=== PATIENT | female | born 1990 | race Caucasian/White ===

== ENCOUNTER 2020-11-26 13:01 | Emergency (ER) | payer SELFPAY ==
[2020-11-26] MEDS ORDERED: ACETAMINOPHEN 325 MG TABLET PO ONE (14:44)
[2020-11-26] MEDS ORDERED: ONDANSETRON 4 MG TAB.RAPDIS PO ONE (14:45)
--- NOTE | 2020-11-26 14:48 | ER Document Report ---
ED Medical Screen (RME) - General Chief Complaint: Abdominal Pain Stated Complaint: ABDOMINAL PAIN Time Seen by Provider: 11/26/20 14:41 Primary Care Provider: RA SANCHEZ MD [Primary Care Provider] - Follow up as needed Mode of Arrival: Ambulatory Information source: Patient Notes: HPI; 30-year-old female presents to the emergency room complaining of sharp right-sided abdominal pain for the past 4 days. Complains of nausea but no vomiting. Has not taken any medications for her symptoms. Denies any COVID-19 exposure. Concern for . PE: Alert and oriented x3. Lungs: Clear to auscultation without rales, rhonchi, wheezes. Heart: Regular rate rhythm without murmurs, rubs, gallops. I have greeted and performed a rapid initial assessment of this patient. A comprehensive ED assessment and evaluation of the patient, analysis of test results and completion of the medical decision making process will be conducted by additional ED providers. I have specifically instructed the patient or family members with the patient to immediately return to any nursing staff should anything change in the patient's condition or with their chief complaint. TRAVEL OUTSIDE OF THE [place] IN LAST 30 DAYS: No - Related Data Allergies/Adverse Reactions: No Known Allergies Allergy (Verified 11/26/20 14:39) Physical Exam - Vital signs Vitals: Temp Pulse Resp BP Pulse Ox 98.7 F 91 16 107/64 100 11/26/20 13:16 11/26/20 13:16 11/26/20 13:16 11/26/20 13:16 11/26/20 13:16 Course - Vital Signs Vital signs: Temp Pulse Resp BP Pulse Ox 98.7 F 91 16 107/64 100 11/26/20 13:16 11/26/20 13:16 11/26/20 13:16 11/26/20 13:16 11/26/20 13:16 Doctor's Discharge - Discharge Referrals: RA SANCHEZ MD [Primary Care Provider] - Follow up as needed
[2020-11-26 15:23] LABS: APPEARANCE,URINE CLOUDY; BILIRUBIN,URINE NEGATIVE (NEGATIVE); COLOR,URINE DARK YELLOW; GLUCOSE, URINE NEGATIVE (NEGATIVE); KETONES,URINE NEGATIVE (NEGATIVE); LEUKOCYTE ESTERASE,URINE LARGE (NEGATIVE); NITRITE,URINE NEGATIVE (NEGATIVE); PROTEIN,URINE 100 mg/dL (NEGATIVE); URINE SPECIFIC GRAVITY 1.029
[2020-11-26 16:39] LABS: ABSOLUTE BASOPHILS # (AUTO) 0.1 10^3/uL (0.0-0.2); ABSOLUTE LYMPHOCYTES (AUTO) 1.4 10^3/uL (0.5-4.7); ABSOLUTE MONOCYTES (AUTO) 0.5 10^3/uL (0.1-1.4); ABSOLUTE NEUT (AUTO) 5.5 10^3/uL (1.7-8.2); BASOPHILS % (AUTO) 0.7 % (0-2); EOSINOPHILS % (AUTO) 0.5 % (0-6); HEMATOCRIT 30.2 % (36.0-47.0); HEMOGLOBIN 10.3 g/dL (12.0-15.5); LYMPHOCYTES % (AUTO) 18.3 % (13-45); MEAN CORPUSCULAR HGB CONC 34.2 g/dL (32.0-36.0); MEAN CORPUSCULAR VOLUME 82 fl (80-97); MONOCYTES % (AUTO) 6.5 % (3-13); PLATELET COUNT 462 10^3/uL (150-450); RED BLOOD COUNT 3.69 10^6/uL (3.72-5.28); TOTAL CELLS COUNTED % (AUTO) 100 %; WHITE BLOOD COUNT 7.4 10^3/uL (4.0-10.5)
[2020-11-26 16:57] LABS: ALKALINE PHOSPHATASE 65 U/L (38-126); ANION GAP 7 (5-19); ASPARTATE AMINO TRANSFERASE 15 U/L (14-36); BILIRUBIN,DIRECT 0.2 mg/dL (0.0-0.4); BILIRUBIN,TOTAL 0.4 mg/dL (0.2-1.3); BLOOD UREA NITROGEN 8 mg/dL (7-20); CARBON DIOXIDE 29 mmol/L (22-30); CHLORIDE 100 mmol/L (98-107); GLUCOSE 121 mg/dL (75-110); POTASSIUM 3.7 mmol/L (3.6-5.0); TOTAL PROTEIN 7.1 g/dL (6.3-8.2)
--- NOTE | 2020-11-26 19:53 | ER Document Report ---
ED General - General Chief Complaint: Abdominal Pain Stated Complaint: ABDOMINAL PAIN Time Seen by Provider: 11/26/20 14:41 Primary Care Provider: RA SANCHEZ MD [ACTIVE STAFF] - Follow up as needed Mode of Arrival: Ambulatory TRAVEL OUTSIDE OF THE [place] IN LAST 30 DAYS: No - HPI Notes: 30-year-old female presents with right-sided abdominal pain. Patient states that for the past 4 to 5 days she has had pain to the right side of her abdomen. Is sharp and stabbing, states that when it is intense it knocks her breath away. Pain radiates up and down her right side. No medications for pain. She had 2 episodes of vomiting yesterday. No diarrhea. No fever. No dysuria or vaginal discharge. She reports concerned she may as she had an abnormally long period lasting 8 days, then yesterday she saw some flecks of blood when wiping. - Related Data Allergies/Adverse Reactions: No Known Allergies Allergy (Verified 11/26/20 14:39) Past Medical History - General Information source: Patient - Social History Smoking Status: Current Every Day Smoker Family History: Reviewed & Not Pertinent Patient has homicidal ideation: No Review of Systems - Review of Systems Constitutional: denies: Fever EENT: No symptoms reported Cardiovascular: No symptoms reported Respiratory: No symptoms reported Gastrointestinal: See HPI Genitourinary: Flank pain. denies: Dysuria Female Genitourinary: No symptoms reported Musculoskeletal: No symptoms reported Skin: No symptoms reported Hematologic/Lymphatic: No symptoms reported Neurological/Psychological: No symptoms reported Physical Exam - Vital signs Vitals: Temp Pulse Resp BP Pulse Ox 98.7 F 91 16 107/64 100 11/26/20 13:16 11/26/20 13:16 11/26/20 13:16 11/26/20 13:16 11/26/20 13:16 - General General appearance: Appears well, Alert In distress: None - HEENT Head: Normocephalic, Atraumatic Extraocular movements intact: Yes Pupils: PERRL - Respiratory Breath sounds: Normal - Cardiovascular Rhythm: Regular Heart sounds: Normal auscultation - Abdominal Distension: No distension Tenderness: Tender - Right flank. No: Guarding, Rebound - Back Back: CVA tenderness - Extremities General upper extremity: Normal ROM General lower extremity: Normal ROM - Neurological Neuro grossly intact: Yes Cognition: Normal Orientation: AAOx4 - Psychological Associated symptoms: Normal affect - Skin Skin Temperature: Warm Course - Re-evaluation Re-evalutation: 30-year-old female with right flank/right-sided abdominal pain x4-5 days. Pat chuy is afebrile, hemodynamically stable. She is alert and well-appearing, nontoxic. She does have right CVA tenderness and tenderness essentially to the right side of her abdomen. Labs done through triage, there is no leukocytosis or left shift, her urine has marked pyuria and some hematuria as well, test is negative. Discussed with patient urinary tract infection is present, clinically has pyelonephritis, I discussed with her that a CT abdomen is indicated as I want to make sure that there is no ureteral stone present or even abnormal presentation of ascites. Patient has refused CT and would like to leave the emergency department at this time. She states that her mother drove her to the emergency department today and does not drive at night, additionally her 1-year-old son is in the car and they must get home. Patient states that she will return tomorrow for CT scan. Patient adamant about her decision and refused to stay, she is alert and oriented and capable of making medical decisions. She was given a dose of Keflex and prescribed an extended course. Strict return precautions given, stable time of departure from the emergency department. - Vital Signs Vital signs: Temp Pulse Resp BP Pulse Ox 98 F 82 18 114/62 100 11/26/20 18:29 11/26/20 20:10 11/26/20 20:10 11/26/20 20:10 11/26/20 20:10 - Laboratory Results Result Diagrams: 11/26/20 16:17 11/26/20 16:17 Laboratory Results Interpreted: 11/26/20 11/26/20 11/26/20 14:00 16:17 16:17 RBC 3.69 L Hgb 10.3 L Hct 30.2 L RDW 17.0 H Plt Count 462 H Sodium 136.3 L Glucose 121 H Urine Protein 100 H Urine Blood MODERATE H Urine Urobilinogen 2.0 H Ur Leukocyte Esterase LARGE H Critical Laboratory Results Reviewed: No Critical Results - Radiology Results Critical Radiology Results Reviewed: No Critical Results Discharge - Discharge Clinical Impression: Pyelonephritis Disposition: HOME, SELF-CARE Additional Instructions: Please begin course of Keflex for infection, you may also continue ibuprofen for pain. Please return to the emergency department soon as possible for further work-up, which would include a CT to assess for stone. Be sure to drink plenty of fluids. Prescriptions: Ibuprofen [Ibu] 600 mg PO Q6H PRN #60 tablet PRN Reason: Cephalexin Monohydrate [Keflex 500 mg Capsule] 500 mg PO BID 10 Days #20 capsule Referrals: RA SANCHEZ MD [ACTIVE STAFF] - Follow up as needed
[2020-11-26] MEDS ORDERED: CEPHALEXIN 500 MG CAPSULE PO ONE (20:03)
[2020-11-26 20:13] VITALS: BP 114/62
== END 2020-11-26 20:13 | disposition home or self-care (01) ==
LOC: ER 13:01
DX: N12 Tubulo-interstitial nephritis, not specified as acute or chronic (principal); R31.9 Hematuria, unspecified; R10.9 Unspecified abdominal pain; R10.819 Abdominal tenderness, unspecified site; R11.10 Vomiting, unspecified; F17.200 Nicotine dependence, unspecified, uncomplicated
CPT/HCPCS: 99283; 36415; 87086; 83690; 84703; 85025; 81025; 80053; 81001; S0119